=== PATIENT | female | born 1980 | race Hispanic/Latino ===

== ENCOUNTER 2021-01-10 09:58 | Emergency (ER) | payer OTHER ==
[~2021-01-10] VITALS: Ht 157.5 cm; Wt 68.0 kg
[2021-01-10] MEDS ORDERED: ACETAMINOPHEN-1 EAC1 PO (11:52)
== END 2021-01-10 12:07 | disposition home or self-care (01) ==
LOC: ED 09:58
DX: M54.6 Pain in thoracic spine (principal); Z88.6 Allergy status to analgesic agent; Z85.41 Personal history of malignant neoplasm of cervix uteri
CPT/HCPCS: 81001; 96372; 99283; J1885